=== PATIENT | male | born 2005 ===

== ENCOUNTER 2024-03-27 12:28 | Outpatient (AMB) | payer OTHER, SELFPAY ==
--- NOTE | 2024-03-27 12:45 | A.OFFVIS_ITS ---
Vital Signs 03/27/24 12:50 Height 5 ft 5.5 in Weight 118 lb BMI 19.3 BP 118/78 Blood Pressure Location Rt brachial Position Sitting Intake Visit Reasons: ENP- Tourette Intake Note: Patient presents for tourette Allergies amoxicillin Allergy (Severe, Verified 03/27/24 12:51) rash Medication List - Last Reconciled 03/27/24 by Nathaly Alfredo MD atomoxetine 25 mg PO QAM cholecalciferol (vitamin D3) 50 mcg PO DAILY guanfacine 2 mg PO DAILY hyoscyamine sulfate 0.125 mg PO TID multivitamin 1 tab PO DAILY HPI Comments Details: 18y/o male comes for further management of Tourettes. He is accompanied by his mother. He was diagnosed with Tourettes at age 5 at [facility] . He had motor and vocal TICS.He used to have OCD like symptoms . He is also on atomoxetine for ADD. He has been stable for few years now and is transferring care. He used to see a psychiatrist but has not seen him since 2019. He had some stress related to relationship with his father who in 2019 . As a child he had seperation anxiety. He graduated high school- has learning disability, had IEPs . He went to [employer] vocational school.Now he works at a [email or web address]. [facility] Medical History (Updated 03/27/24 @ 13:22 by Nathaly Alfredo MD) Anxiety Tourettes disorder Tourette syndrome Anxiety Family History Mother HTN (hypertension) Father HTN (hypertension) Paternal Grandfather Diabetes Social History Alcohol intake: never Patient Tobacco Use Status: Never used Tobacco Physical Exam Vital Signs: Last Vital Signs BP 118/78 03/27/24 12:50 BMI result Body Mass Index 19.3 Const General: cooperative, healthy appearing, comfortable, no acute distress and anxious Nutritional Appearance: average body habitus Orientation/consciousness: patient oriented x3 Eyes Pupils: Equal, round and reactive pupils present Neuro Other: rare TICS - eye blinking clears his throat General: patient oriented x3, gait normal, tone normal, moves all extremities and no focal motor deficits Cranial nerves: Yes Facial sensation intact/muscles of mastication intact, Yes Equal, round and reactive pupils present, Yes Bilaterally intact EOM present, Yes Nystagmus not present, Yes Normal facial strength present and Yes Midline tongue present Cognition (Neuro): normal cognition Gait exam (Neuro): Normal gait present Motor exam (neuro): 5/5 motor strength present throughout and Normal motor muscle tone present throughout Deep tendon reflexes (DTR's): Right triceps reflex intensity grade: 2+, Left triceps reflex intensity grade: 2+, Rt Biceps (C5, C6): 2+, Left biceps reflex intensity grade: 2+, Right brachioradialis reflex intensity grade: 2+, Left brachioradialis reflex intensity grade: 2+, Right patellar reflex intensity grade: 2+ and Left patellar reflex intensity grade: 2+ Coordination: [id number] test normal Psych Affect: Anxious affect present Assessment & Plan Assessment & Plan (1) Tourettes disorder: Code(s): F95.2 - Tourette's disorder Category: Medical (2) Anxiety: Code(s): F41.9 - Anxiety disorder, unspecified Category: Medical Plan Continue Guanfacine 2mg and ER 4 mg qam Atomoxetine 25 mg qam and q noon Suggested a psychiatry eval for anxiety and OCD Medications: New guanfacine ER 4 mg PO DAILY 30 tabs 6RF guanfacine 2 mg PO DAILY 30 tabs 6RF atomoxetine qam and q noon 25 mg PO .qam and q noon 60 caps 6RF Coding Level of Care Code New Pt Level 4 (72353) Complex EM visit Add On G2211 Diagnoses Tourettes disorder F95.2 Anxiety F41.9
[2024-03-27 12:50] VITALS: BP 118/78; BMI 19.3
== END 2024-03-27 13:32 | disposition home or self-care (01) ==
PROVIDERS: PCP Internal Medicine; Visit Provider Psychiatry & Neurology Neurology
DX: F95.2 Tourette's disorder (principal); F41.9 Anxiety disorder, unspecified
CPT/HCPCS: 99204

== ENCOUNTER 2024-08-29 08:08 | Outpatient (AMB) | payer OTHER, SELFPAY ==
--- OUTSIDE RECORDS SUMMARY | 2024-08-29 08:13 | XMS_ITS | Clinical Summary ---
Author Organization [facility] Address [address] [place] [phone] Phone Care Team Providers Care Field Administrator Name Role Phone Joshua Byers MD Primary Care Provider Roberto montoya Allergies Active Allergy Reactions Criticality Noted Date Comments Amoxicillin 01/08/2020 Medications Medication Sig Dispensed Refills Start Date End Date Status guanFACINE (INTUNIV) 4 mg Tb24 Take 6 mg by mouth daily. Active atomoxetine (STRATTERA) 25 MG capsule Take 25 mg by mouth 2 (two) times a day. Active Active Problems Problem Noted Date Diagnosed Date Gluten intolerance 03/31/2020 History of abdominal pain 03/31/2020 History of diarrhea 03/31/2020 Social History Tobacco Use Types Packs/Day Years Used Date Smoking Tobacco: Never Assessed Education Answer Date Recorded Are you interested in more education? Not on jarad e 09/10/2022 Are you concerned about learning? Not on file 09/10/2022 No 09/10/2022 No 09/10/2022 Digital Access Answer Date Recorded No 10/09/2022 No 10/09/2022 No 10/09/2022 Reliable internet access at home? Not on file 10/09/2022 Device with a working camera? Not on file Sex and Gender Information Value Date Recorded Sex Assigned at Not on file Gender Identity Not on file Sexual Orientation Not on file Last Filed Vital Signs Vital Sign Reading Time Taken Comments Blood Pressure 98/60 01/08/2020 9:08 AM EDT Pulse 88 01/08/2020 9:08 AM EDT Temperature 36.6 ??C (97.9 ??F) 01/08/2020 9:08 AM ED T Respiratory Rate 16 01/08/2020 9:08 AM EDT Oxygen Saturation - - Inhaled Oxygen Concentration - - Weight 50.3 kg (110 lb 12.8 oz) 03/31/2020 4:27 PM EST Height 163 cm (5' 4.17 ) 01/08/2020 9:08 AM EDT Body Mass Index - - Plan of Treatment Health Maintenance Due Date Last Done Comments BMI ASSESSMENT 08/29/2007 DEVELOPMENTAL/BEHAVIORAL SCREENING (PHQ, PSC, or SWYC) 08/29/2007 DEPRESSION SCREENING 2016 SMOKING Hx and SMOKELESS TOBACCO SCREENING 2017 ADOLESCENT UNIVERSAL LIPID SCREENING 2021 HEPATITIS B SCREENING 2022 HEPATITIS C SCREENING 2022 HIV ONE-TIME SCREENING (18-65 YEARS) 2022 INFLUENZA VACCINE (#1) 2023 , 05/10/2019, 05/28/2018, Additional history exists COVID-19 VACCINE (2 - season) 2024 06/06/2021 COMBINED DTaP,Tdap,Td (7 - Td or Tdap) 11/26/2025 11/27/2015, 09/02/2009, 03/15/2006, Additional history exists HEPATITIS B VACCINES Completed 03/08/2005, 01/04/2005, 2004, Additional history exists PNEUMOCOCCAL VACCINES (0-49 years) Aged Out 08/30/2005, 03/08/2005, 01/04/2005, Additional history exists No longer eligible based on patient's age to complete this topic HIB VACCINES Completed 12/09/2005, 02/14, 01/04/2005, Additional history exists MMR VACCINES Completed 09/02/2009, 12/09/2005 VARICELLA VACCINES Completed 09/02/2009, 08/30/2005 HPV VACCINES Completed 01/30/2019, 08/29/2018 HEPATITIS A VACCINES Completed 10/19/2019, 09/01/19 18 MENINGOCOCCAL VACCINES (ACWY) Completed 10/27/2020, 11/27/2015 Medical Devices Not on file Care Teams Field Administrator Relationship Specialty Start Date End Date Joshua Byers MD PCP - General Pediatrics 12/26/19 Additional Source Comments The information contained in this document represents components of the legal health record. It is not the complete legal health record.[facility]
[2024-08-29 08:19] VITALS: BP 102/72; PULSE 70; O2SAT 97; BMI 18.8
--- NOTE | 2024-08-29 08:19 | A.OFFVIS_ITS ---
Vital Signs 08/29/24 08:19 Height 5 ft 5.5 in Weight 115 lb BMI 18.8 BP 102/72 Blood Pressure Location Rt brachial Position Sitting Pulse 70 Pulse Source Pulse Oximeter Pulse Oximetry (%) 97 Oxygen Delivery Method Room Air Intake Visit Reasons: Follow Up 6mo-Conf w/mom Intake Note: Patient following up for tourette's med trial given Allergies amoxicillin Allergy (Severe, Verified 08/29/24 08:22) rash Medication List - Last Reconciled 08/29/24 by Nathaly Alfredo MD atomoxetine 25 mg PO .qam and q noon cholecalciferol (vitamin D3) 50 mcg PO DAILY guanfacine 2 mg PO DAILY guanfacine ER 4 mg PO DAILY multivitamin 1 tab PO DAILY HPI Comments Details: 19y/o male comes for follow up of Tourettes. TICS are stable and he has some bad days but able to manage.He had recent increase in vocal TICS- random grunting noises/ He has not seen a psyhciatrist yet. He is accompanied by his mother. He was diagnosed with Tourettes at age 5 at [facility] . He had motor and vocal TICS.He used to have OCD like symptoms . He is also on atomoxetine for ADD. He has been stable for few years now and is transferring care. He used to see a psychiatrist but has not seen him since 2019. He had some stress related to relationship with his father who in 2019 . As a child he had seperation anxiety. He graduated high school- has learning disability, had IEPs . He went to [employer] vocational school.Now he works at a [employer] company . [facility] Medical History Anxiety Tourettes disorder Tourette syndrome Anxiety Family History Mother HTN (hypertension) Father HTN (hypertension) Paternal Grandfather Diabetes Social History Alcohol intake: never Patient Tobacco Use Status: Never used Tobacco Physical Exam Vital Signs: Last Vital Signs Pulse 70 08/29/24 08:19 BP 102/72 08/29/24 08:19 Pulse Ox 97 08/29/24 08:19 Oxygen Delivery Method Room Air 08/29/24 08:19 BMI result Body Mass Index 18.8 Const General: cooperative, healthy appearing, comfortable, no acute distress and anxious Nutritional Appearance: average body habitus Orientation/consciousness: patient oriented x3 Eyes Pupils: Equal, round and reactive pupils present Neuro Other: rare TICS - eye blinking clears his throat General: patient oriented x3, gait normal, tone normal, moves all extremities and no focal motor deficits Cranial nerves: Yes Facial sensation intact/muscles of mastication intact, Yes Equal, round and reactive pupils present, Yes Bilaterally intact EOM present, Yes Nystagmus not present, Yes Normal facial strength present and Yes Midline tongue present Cognition (Neuro): normal cognition Gait exam (Neuro): Normal gait present Motor exam (neuro): 5/5 motor strength present throughout and Normal motor muscle tone present throughout Coordination: [id number] test normal Psych Affect: Anxious affect present Assessment & Plan Assessment & Plan (1) Tourettes disorder: Code(s): F95.2 - Tourette's disorder Category: Medical (2) Anxiety: Code(s): F41.9 - Anxiety disorder, unspecified Category: Medical Plan Continue Guanfacine 2mg and ER 4 mg qam Atomoxetine 25 mg qam and q noon Suggested a psychiatry eval for anxiety and OCD Medications: Refilled guanfacine 2 mg PO DAILY 30 tabs 6RF guanfacine ER 4 mg PO DAILY 30 tabs 6RF atomoxetine qam and q noon 25 mg PO .qam and q noon 60 caps 6RF Coding Level of Care Code Est Pt Level 4 (54471) Diagnoses Tourettes disorder F95.2 Anxiety F41.9
== END 2024-08-29 08:41 | disposition home or self-care (01) ==
LOC: HO.HSMS 08:09
PROVIDERS: PCP Internal Medicine; Visit Provider Psychiatry & Neurology Neurology
DX: F95.2 Tourette's disorder (principal); F41.9 Anxiety disorder, unspecified
CPT/HCPCS: 99214

== ENCOUNTER → 2024-08-29 08:08 | Outpatient (BNVA) | payer OTHER, SELFPAY | PROVIDERS: PCP Internal Medicine; Visit Provider Psychiatry & Neurology Neurology ==

== ENCOUNTER 2025-02-27 07:44 | Outpatient (AMB) | payer OTHER, SELFPAY ==
--- NOTE | 2025-02-27 07:45 | MHC.OFFVIS ---
Vital Signs 02/27/25 07:46 Height 5 ft 5.5 in Weight 119 lb 2 oz BMI 19.5 BP 120/78 Blood Pressure Location Rt brachial Position Sitting Pulse 86 Pulse Source Pulse Oximeter Pulse Oximetry (%) 99 Oxygen Delivery Method Room Air Intake Visit Reasons: 6 mo follow up Intake Note: Follow up Tourette's disorder and anxiety Ultrasound Tech Required: No Accompanied by: Mother Allergies amoxicillin Allergy (Severe, Verified 02/27/25 07:45) rash Medication List - Last Reconciled 02/27/25 by Nathaly Alfredo MD atomoxetine 25 mg PO .qam and q noon cholecalciferol (vitamin D3) 50 mcg PO DAILY guanfacine 2 mg PO DAILY guanfacine ER 4 mg PO DAILY multivitamin 1 tab PO DAILY HPI Comments Details: 19y/o male comes for follow up of Tourettes.No change since last visit. TICS are stable and he has some bad days but able to manage.He had recent increase in vocal TICS- random grunting noises/ He has not seen a psyhciatrist yet. He is accompanied by his mother. He was diagnosed with Tourettes at age 5 at [facility] . He had motor and vocal TICS.He used to have OCD like symptoms . He is also on atomoxetine for ADD. He has been stable for few years now and is transferring care. He used to see a psychiatrist but has not seen him since 2019. He had some stress related to relationship with his father who in 2019 . As a child he had seperation anxiety. He graduated high school- has learning disability, had IEPs . He went to [employer] vocational school.Now he works at a [employer] . [facility] Medical History Anxiety Tourettes disorder Tourette syndrome Anxiety Family History Mother HTN (hypertension) Father HTN (hypertension) Paternal Grandfather Diabetes Social History Alcohol intake: never Patient Tobacco Use Status: Never used Tobacco Physical Exam Vital Signs: Last Vital Signs Pulse 86 02/27/25 07:46 BP 120/78 02/27/25 07:46 Pulse Ox 99 02/27/25 07:46 Oxygen Delivery Method Room Air 02/27/25 07:46 BMI result Body Mass Index 19.5 Const General: cooperative, healthy appearing, comfortable, no acute distress and anxious Nutritional Appearance: average body habitus Orientation/consciousness: patient oriented x3 Eyes Pupils: Equal, round and reactive pupils present Neuro Other: TICS - eye blinking, grunting , neck stretching clears his throat General: patient oriented x3, gait normal, tone normal, moves all extremities and no focal motor deficits Cranial nerves: Yes Facial sensation intact/muscles of mastication intact, Yes Equal, round and reactive pupils present, Yes Bilaterally intact EOM present, Yes Nystagmus not present, Yes Normal facial strength present and Yes Midline tongue present Cognition (Neuro): normal cognition Gait exam (Neuro): Normal gait present Motor exam (neuro): 5/5 motor strength present throughout and Normal motor muscle tone present throughout Coordination: [id number] test normal Psych Affect: Anxious affect present Assessment & Plan Assessment & Plan (1) Tourettes disorder: Code(s): F95.2 - Tourette's disorder Category: Medical (2) Anxiety: Code(s): F41.9 - Anxiety disorder, unspecified Category: Medical Plan Continue Guanfacine 2mg and ER 4 mg qam Atomoxetine 25 mg qam and q noon Reviewed Dr. Morales note - suggested increase in atomoxetine - but patient is comfortable in the current dose. psychiatry eval for anxiety and OCD Coding Level of Care Code Est Pt Level 4 (96249) Complex EM visit Add On G2211 Diagnoses Tourettes disorder F95.2 Anxiety F41.9
[2025-02-27 07:46] VITALS: BP 120/78; PULSE 86; O2SAT 99; BMI 19.5
--- OUTSIDE RECORDS SUMMARY | 2025-02-27 07:50 | XMS_ITS | Clinical Summary ---
Author Organization [facility] Address [address] [place] [address] Phone Care Team Providers Care Leak Operator [employer] Name Role Phone Liane Thomas Primary Care Provider [phone] Liane Thomas Unavailable Liane Thomas Unavailable Allergies Active Allergy Reactions Criticality Noted Date Comments Amoxicillin 11/25/2023 Gluten 11/25/2023 Medications atomoxetine (Strattera) 25 mg capsule Take 1 capsule by mouth 2 times a day. 4 Active guanFACINE (Intuniv) 3 mg 24 hr tablet Dose: 6 mg, Dose Amount: 2 tab, PO, DailyMorning, Dispense Quantity: 60 tab, Refills: 5, Entered: 12/14/21 17:15:00 EDT, [facility] #[id number] 2 Active hyoscyamine (NuLev) 0.125 mg disintegrating tablet Dose: 0.125 mg, Dose Amount: 1 tab, PO, TID, Dispense Quantity: 180 tab, Refills: 1, Entered: 09/09/23 11:22:00 TrialBee[facility], [facility] #[id number] 4 Active pediatric multivitamin tablet,chewable Chew 1 tablet 1 time each day. Active Social History Tobacco Use Types Packs/Day Years Used Date Smoking Tobacco: Never Assessed Sex and Gender Information Value Date Recorded Sex Assigned at Not on file Legal Sex Male 8:49 PM EDT Gender Identity Not on file Sexual Orientation Not on file Last Filed Vital Signs Vital Sign Reading Time Taken Comments Blood Pressure 114/64 12/14/2021 3:56 PM EDT Pulse 80 12/14/2021 3:56 PM EDT Temperature - - Respiratory Rate - - Oxygen Saturation - - Inhaled Oxygen Concentration - - Weight 51.5 kg (113 lb 8.6 oz) 11/25/2023 1:42 P M EDT Height 165.1 cm (5' 5 ) 11/25/2023 1:42 PM EDT Body Mass Index 18.89 11/25/2023 1:42 PM EDT Plan of Treatment Health Maintenance Due Date Last Done Comments Chlamydia and Gonorrhea Screening 2004 HIV Screening 2004 Meningococcal B Vaccine (1 of 2 - Standard) 2020 Hepatitis C Screening 2022 Influenza Vaccine (#1) 2025 0, 05/10/2019, 05/28/2018, Additional history exists DTaP/Tdap/Td Vaccines (7 - Td or Tdap) 11/26/2025 11/27/2015, 09/02/2009, 03/15/2006, Additional history exists Hepatitis B Vaccines Completed 03/08/2005, 01/04/2005, 2004, Additional history exists Pneumococcal Vaccine: Pediatrics (0 to 5 Years) and At-Risk Patients (6 to 49 Years) Completed 08/30/2005, 03/08/2005, 01/04/2005, Additional history exists HIB Vaccines Completed 12/09/2005, 02/14, 01/04/2005, Additional history exists IPV Vaccines Completed 09/02/2009, 02/14, 01/04/2005, Additional history exists MMR Vaccines Completed 09/02/2009, 12/09/2005 Varicella Vaccines Completed 09/02/2009, 08/30/2005 HPV Vaccines Completed 01/30/2019, 08/29/2018 Hepatitis A Vaccines Completed 10/19/2019, 09/01/19 18 Meningococcal Vaccine Completed 10/27/2020, 016 Rotavirus Vaccines Aged Out No longer eligible based on patient's age to complete this topic Insurance [facility] Care Teams Leak Operator [employer]affin Plant Relationship Specialty Start Date End Date Liane Thomas [facility] [address] [place] [id number] PCP - General 09/09/23 Liane Thomas [address] [address] PCP - Insurance PCP 08/26/23 Liane Thomas [address] [address] PCP - Insurance Identified PCP 10/05/23
--- OUTSIDE RECORDS SUMMARY | 2025-02-27 07:50 | XMS_ITS | Clinical Summary ---
Author Organization [facility] Address [address] [place] [phone] Phone Care Team Providers Care Station Tender Name Role Phone Joshua Byers MD Primary Care Provider Roberto montoya Allergies Active Allergy Reactions Criticality Noted Date Comments Amoxicillin 01/08/2020 Medications guanFACINE (INTUNIV) 4 mg Tb24 Take 6 [...] at Not on file Legal Sex Male 10:30 AM EDT Gender Identity Not on file Sexual Orientation Not on file Last Filed Vital Signs Vital Sign Reading Time Taken Comments Blood Pressure 98/60 01/08/2020 9:08 AM EDT Pulse 88 01/08/2020 9:08 AM EDT Temperature 36.6 C (97.9 F) 01/08/2020 9:08 AM EDT Respiratory Rate 16 01/08/2020 9:08 AM EDT Oxygen Saturation - - Inhaled Oxygen Concentration - - Weight 50.3 kg (110 lb 12.8 oz) 03/31/2020 4:27 PM EST Height 163 cm (5' 4.17 ) 01/08/2020 9:08 AM EDT Body Mass Index - - Plan of Treatment Health Maintenance Due Date Last Done Comments DEVELOPMENTAL/BEHAVIORAL SCREENING (PHQ, PSC, or SWYC) 08/29/2007 DEPRESSION SCREENING 2016 SMOKING Hx and SMOKELESS TOBACCO SCREENING 2017 MENINGOCOCCAL VACCINES (B) (1 of 2 - Standard) 2020 ADOLESCENT UNIVERSAL LIPID SCREENING 2021 HEPATITIS C SCREENING 2022 HIV ONE-TIME SCREENING (18-65 YEARS) 2022 INFLUENZA VACCINE (#1) 2024 , 05/10/2019, 05/28/2018, Additional history exists COVID-19 VACCINE ( - 2024- season) 2025 06/06/2021 COMBINED DTaP,Tdap,Td (7 - Td or Tdap) 11/26/2025 11/27/2015, 09/02/2009, 03/15/2006, Additional history exists PNEUMOCOCCAL VACCINES (0-49 years) [...] 10/27/2020, 11/27/2015 Medical Devices Not on file Insurance [facility] Care Teams Station Tender Relationship Specialty Start Date End Date Joshua Byers MD PCP - General Pediatrics 12/26/19 Additional Source Comments The information contained in this document represents components of the legal health record. It is not the complete legal health record.[facility]
== END 2025-02-27 08:16 | disposition home or self-care (01) ==
LOC: HO.HSMS 07:45
PROVIDERS: PCP Internal Medicine; Visit Provider Psychiatry & Neurology Neurology
DX: F95.2 Tourette's disorder (principal); F41.9 Anxiety disorder, unspecified
CPT/HCPCS: 99214; G2211